=== PATIENT | male | born 1990 | race Two or more races ===

== ENCOUNTER 2016-05-15 23:41 | Emergency (ER) | payer OTHER ==
[~2016-05-15] VITALS: Ht 170.2 cm; Wt 68.0 kg
[2016-05-15 23:50] VITALS: BP 106/58
[2016-05-15] MEDS ORDERED: KETOROLAC TROMETHAMINE INJ 30 MG/ML VIAL ONE (23:59)
[2016-05-16] MEDS ORDERED: KETOROLAC TROMETHAMINE INJ 60 MG/2 ML VIAL IM ONE
--- NOTE | 2016-05-16 00:13 | NUR ---
XRAY AT BEDSIDE FOR FOOT XRAY
== END 2016-05-16 01:26 | disposition home or self-care (01) ==
LOC: ER 23:43
DX: M79.675 Pain in left toe(s) (principal)
CPT/HCPCS: 73660; 96372; 99284; A4606; J1885; Z7610